=== PATIENT | female | born 1950 | race Hispanic/Latino ===

== ENCOUNTER 2017-07-25 14:17 | Inpatient (IN) | payer MEDICARE ==
[~2017-07-25] VITALS: Ht 151.1 cm; Wt 70.5 kg
[2017-07-25 16:40] VITALS: BP 125/71
[2017-07-25 17:05] LABS: BASOPHILS % (AUTO) 0.6 % (0.0-5.0); EOSINOPHILS % (AUTO) 1.9 % (0.0-8.0); LYMPHOCYTES % (AUTO) 35.5 % (21.0-51.0); MEAN CORPUSCULAR HEMOGLOBIN 30.6 pg (27.0-33.0); MEAN CORPUSCULAR HGB CONC 33.9 g/dL (32.0-36.0); MEAN CORPUSCULAR VOLUME 90.3 fL (79-99); MONOCYTES % (AUTO) 8.7 % (3.0-13.0); NEUTROPHILS % (AUTO) 53.3 % (40.0-77.0); PLATELET COUNT (AUTO) 196 K/uL (130-400); RED BLOOD CELL COUNT(AUTO) 3.77 MIL/uL (4.00-5.50); RED CELL DISTRIBUTION WIDTH 12.4 % (11.0-15.5); WHITE BLOOD COUNT (AUTO) 6.5 K/uL (4.8-10.8)
[2017-07-25 17:06] LABS: APPEARANCE,URINE Clear (CLEAR); BILIRUBIN,URINE Negative (NEGATIVE); COLOR,URINE Yellow (YELLOW); GLUCOSE, URINE (UA) Negative (NEGATIVE); KETONES,URINE Negative (NEGATIVE); LEUKOCYTE ESTERASE ,URINE Negative (NEGATIVE); NITRATE,URINE Negative (NEGATIVE); OCCULT BLOOD,URINE Moderate (NEGATIVE); PROTEIN,URINE Negative (NEGATIVE)
[2017-07-25 17:24] LABS: CREATININE 1.1 mg/dL (0.5-1.5); POTASSIUM 4.2 mmol/L (3.5-5.1)
[2017-07-25] MEDS ORDERED: ATOR20TA65 PO (17:34)
[2017-07-25] MEDS ORDERED: MELO-106 PO (17:34)
[2017-07-25] MEDS ORDERED: FLUT15.88 NS (17:34)
[2017-07-25] MEDS ORDERED: LISI1TAB9 PO (17:34)
[2017-07-25] MEDS ORDERED: FOLI1TAB15 PO (17:34)
[2017-07-25] MEDS ORDERED: AEC81 PO (17:34)
[2017-07-25] MEDS ORDERED: ERGO500014 PO (17:34)
[2017-07-25] MEDS ORDERED: ACET-2743 PO (17:34)
[2017-07-25] MEDS: CEFAZOLIN SODIUM 1 GM VIAL IVP SCH (18:15)
[2017-07-25] MEDS ORDERED: WATER FOR INJECTION,STERILE 20 ML VIAL IJ SCH (18:15)
[2017-07-28] VITALS (31 sets, daily range): BP systolic 94–140; BP diastolic 53–81
[2017-07-28] MEDS ORDERED: BUPIVACAINE/EPI/PF 0.25% 30ML VIAL IJ ONE (06:47)
[2017-07-28] MEDS ORDERED: CEFAZOLIN SODIUM 1 GM VIAL ONE (06:47)
[2017-07-28] MEDS ORDERED: TRANEXAMIC ACID 1000MG/10ML IV ONE (06:47)
[2017-07-28] MEDS ORDERED: LACTATED RINGERS 1000ML 1,000 ML IV ONE (08:03)
[2017-07-28] MEDS ORDERED: ACETAMINOPHEN EXTRA STRENGTH 500 MG TABLET ONE (08:26)
[2017-07-28] MEDS ORDERED: KETOROLAC TROMETHAMINE 15MG/ML ONE (08:26)
[2017-07-28] MEDS ORDERED: OXYCODONE HCL 10 MG TAB.SR.12H PO ONE (08:27)
[2017-07-28] MEDS ORDERED: CELECOXIB 200 MG CAP ONE (08:27)
[2017-07-28] MEDS ORDERED: METOCLOPRAMIDE 10 MG/2 ML VIAL ONE (08:27)
[2017-07-28] MEDS ORDERED: GLYCOPYRROLATE 0.2 MG/ML 5 ML VIAL ONE (09:25)
[2017-07-28] MEDS ORDERED: PROPOFOL 10 MG/ML 20ML VIAL IV ONE (09:25)
[2017-07-28] MEDS ORDERED: NEOSTIGMINE METHYLSULFATE 1MG/ML IV ONE (09:25)
[2017-07-28] MEDS ORDERED: SUCCINYLCHOLINE 200MG/10ML SYR ONE (09:25)
[2017-07-28] MEDS ORDERED: DEXAMETHASONE SOD PHOSPHATE 10MG/ML 1ML VIAL ONE (09:25)
[2017-07-28] MEDS ORDERED: MIDAZOLAM HCL 1 MG/ML 2ML VIAL ONE (09:25)
[2017-07-28] MEDS ORDERED: LIDOCAINE PF 2% 5ML ABBOJECT ONE (09:25)
[2017-07-28] MEDS ORDERED: ONDANSETRON HCL 4 MG/2 ML VIAL ONE (09:25)
[2017-07-28] MEDS ORDERED: FENTANYL CITRATE PF 50 MCG/1 ML 2ML VIAL ONE ×2 (09:26→10:58)
[2017-07-28] MEDS ORDERED: ROPIVACAINE 0.5% 5MG/ML 30ML IJ ONE (09:31)
[2017-07-28] MEDS ORDERED: VECURONIUM BROMIDE 10 MG ML IV ONE (09:31)
[2017-07-28] MEDS: CEFAZOLIN SODIUM 1 GM VIAL IVP SCH ×3 (10:20→17:06)
[2017-07-28] MEDS ORDERED: PROMETHAZINE HCL 25 MG/ML 1ML AMPULE IM PRN (12:15)
[2017-07-28] MEDS ORDERED: POTASSIUM CHLORIDE 20 MEQ ERTAB PO PRN (12:15)
[2017-07-28] MEDS ORDERED: CALCIUM CARBONATE 500 MG TABLET PO PRN (12:15)
[2017-07-28] MEDS ORDERED: POTASSIUM CHLORIDE 10% ELIXIR 20 MEQ/15 ML UDCUP PO PRN (12:15)
[2017-07-28] MEDS ORDERED: POTASSIUM CHLORIDE 20MEQ/100ML 100 ML IV PRN (12:15)
[2017-07-28] MEDS ORDERED: TEMAZEPAM 15 MG CAPSULE PO PRN (12:15)
[2017-07-28] MEDS ORDERED: KETOROLAC TROMETHAMINE 15MG/ML IV PRN (12:15)
[2017-07-28] MEDS ORDERED: OXYCODONE HCL 5 MG TAB PO PRN ×2 (12:15)
[2017-07-28] MEDS ORDERED: FERROUS FUMARATE 324 MG TABLET PO PRN (12:15)
[2017-07-28] MEDS ORDERED: DIPHENHYDRAMINE HCL 25 MG CAPSULE PO PRN (12:15)
[2017-07-28] MEDS: ACETAMINOPHEN 325 MG TAB PO SCH ×2 (12:15→22:34)
[2017-07-28] MEDS ORDERED: LIDOCAINE HCL-MPF 1% 2ML VIAL IVP PRN (12:15)
[2017-07-28] MEDS ORDERED: DiphenhydrAMINE HCL 50 MG/ML VIAL IVP PRN (12:15)
[2017-07-28] MEDS ORDERED: MEPERIDINE-PF 25 MG/ML SYG ONE ×2 (13:45→14:02)
[2017-07-28] MEDS ORDERED: KETOROLAC TROMETHAMINE 30MG/ML ONE (13:46)
[2017-07-28] MEDS ORDERED: SODIUM CHLORIDE 0.9% 1000ML 1,000 ML IV ONE (14:47)
[2017-07-28] MEDS ORDERED: FLUTICASONE PROPIONATE 50MCG/SPRAY 16 GM BOTTLE NS PRN (15:30)
[2017-07-28] MEDS: SODIUM CHLORIDE 0.9% 1000ML 1,000 ML IV SCH ×2 (15:33→22:34)
[2017-07-28] MEDS: WATER FOR INJECTION,STERILE 20 ML VIAL IJ SCH (17:06)
[2017-07-28] MEDS ORDERED: CEFAZOLIN 2GM / 50 ML 50 ML IV SCH (17:15)
[2017-07-28] MEDS: PREGABALIN 25 MG CAP PO SCH (22:33)
[2017-07-28] MEDS: ATORVASTATIN CALCIUM 20 MG TABLET PO SCH (22:33)
[2017-07-28] MEDS: FAMOTIDINE 20MG TAB 20 MG TAB PO SCH (22:33)
[2017-07-28] MEDS: ASPIRIN 325 MG TABLET PO SCH (22:33)
[2017-07-28] MEDS: CELECOXIB 200 MG CAP PO SCH (22:33)
[2017-07-29] VITALS: BP 95/57
[2017-07-29] MEDS: ACETAMINOPHEN 325 MG TAB PO SCH ×4 (00:07→18:09)
[2017-07-29] MEDS: WATER FOR INJECTION,STERILE 20 ML VIAL IJ SCH (00:52)
[2017-07-29] MEDS: CEFAZOLIN SODIUM 1 GM VIAL IVP SCH ×2 (00:52→11:51)
[2017-07-29 04:00] VITALS: BP 112/65
[2017-07-29 04:44] LABS: HEMATOCRIT 28.2 % (36-48); MEAN CORPUSCULAR HEMOGLOBIN 32.4 pg (27.0-33.0); MEAN CORPUSCULAR HGB CONC 35.5 g/dL (32.0-36.0); MEAN CORPUSCULAR VOLUME 91.2 fL (79-99); PLATELET COUNT (AUTO) 140 K/uL (130-400); RED BLOOD CELL COUNT(AUTO) 3.09 MIL/uL (4.00-5.50); RED CELL DISTRIBUTION WIDTH 12.3 % (11.0-15.5); WHITE BLOOD COUNT (AUTO) 9.9 K/uL (4.8-10.8)
[2017-07-29 04:47] LABS: CREATININE 1.4 mg/dL (0.5-1.5); POTASSIUM 4.4 mmol/L (3.5-5.1)
[2017-07-29 07:52] VITALS: BP 93/58
[2017-07-29] MEDS: FAMOTIDINE 20MG TAB 20 MG TAB PO SCH ×2 (08:31→21:14)
[2017-07-29] MEDS: SODIUM CHLORIDE 0.9% 1000ML 1,000 ML IV SCH (08:31)
[2017-07-29] MEDS: ASPIRIN 325 MG TABLET PO SCH ×2 (08:31→21:14)
[2017-07-29] MEDS: POLYETHYLENE GLYCOL 3350 17 GM POWD.PACK PO SCH (08:31)
[2017-07-29] MEDS: TRAMADOL HCL 50 MG TABLET PO PRN (08:31)
[2017-07-29] MEDS: CELECOXIB 200 MG CAP PO SCH ×2 (08:32→21:14)
[2017-07-29] MEDS: PREGABALIN 25 MG CAP PO SCH ×2 (08:32→21:14)
[2017-07-29] MEDS: HYDROCHLOROTHIAZIDE 25 MG TABLET PO SCH (08:33)
[2017-07-29 11:39] VITALS: BP 93/57
[2017-07-29] MEDS: LISINOPRIL 10 MG TABLET PO SCH (11:46)
[2017-07-29] MEDS: PSYLLIUM SEED 1 EACH PACKET PO SCH (11:48)
[2017-07-29 16:47] VITALS: BP 101/63
[2017-07-29 20:00] VITALS: BP 100/58
[2017-07-29] MEDS: ATORVASTATIN CALCIUM 20 MG TABLET PO SCH (21:14)
[2017-07-30] VITALS: BP 98/57
[2017-07-30] MEDS: ACETAMINOPHEN 325 MG TAB PO SCH ×4 (00:19→17:58)
[2017-07-30 04:00] VITALS: BP 115/63
[2017-07-30 04:35] LABS: MEAN CORPUSCULAR HEMOGLOBIN 31.1 pg (27.0-33.0); MEAN CORPUSCULAR VOLUME 91.5 fL (79-99); PLATELET COUNT (AUTO) 121 K/uL (130-400); RED BLOOD CELL COUNT(AUTO) 2.96 MIL/uL (4.00-5.50); RED CELL DISTRIBUTION WIDTH 12.4 % (11.0-15.5); WHITE BLOOD COUNT (AUTO) 9.2 K/uL (4.8-10.8)
[2017-07-30 04:52] LABS: CREATININE 1.3 mg/dL (0.5-1.5)
[2017-07-30 07:44] VITALS: BP 126/66
[2017-07-30] MEDS: HYDROCHLOROTHIAZIDE 25 MG TABLET PO SCH (08:41)
[2017-07-30] MEDS: CELECOXIB 200 MG CAP PO SCH (08:42)
[2017-07-30] MEDS: ASPIRIN 325 MG TABLET PO SCH (08:43)
[2017-07-30] MEDS: FAMOTIDINE 20MG TAB 20 MG TAB PO SCH (08:43)
[2017-07-30] MEDS: POLYETHYLENE GLYCOL 3350 17 GM POWD.PACK PO SCH (08:43)
[2017-07-30] MEDS: PREGABALIN 25 MG CAP PO SCH (08:43)
[2017-07-30] MEDS: LISINOPRIL 10 MG TABLET PO SCH (10:35)
[2017-07-30] MEDS: TRAMADOL HCL 50 MG TABLET PO PRN (10:36)
[2017-07-30 11:13] VITALS: BP 115/56
[2017-07-30] MEDS ORDERED: BISACODYL 5 MG TABLET.DR PO PRN (12:15)
[2017-07-30] MEDS: PSYLLIUM SEED 1 EACH PACKET PO SCH (13:12)
[2017-07-30] MEDS ORDERED: ASPI-1012 PO (14:06)
[2017-07-30] MEDS ORDERED: HYDR-309 PO (14:06)
[2017-07-30 16:27] VITALS: BP 123/70
[2017-07-31] MEDS ORDERED: BISACODYL 10 MG SUPP.RECT RC PRN (12:15)
== END 2017-07-30 20:30 | disposition home health service (06) | DRG 470 ==
LOC: DAHIP 07-28 06:55 → 4AH 07-28 13:35
PROVIDERS: ADMIT Orthopaedic Surgery; ATTEND Orthopaedic Surgery
PROC: 0SRC0J9 Replacement of Right Knee Joint with Synthetic Substitute, Cemented, Open Approach (ICD-10-PCS; principal; 2017-07-28 10:08)
DX: M17.11 Unilateral primary osteoarthritis, right knee (principal); G89.29 Other chronic pain; I10 Essential (primary) hypertension; K21.9 Gastro-esophageal reflux disease without esophagitis; M21.00 Valgus deformity, not elsewhere classified, unspecified site; Z90.710 Acquired absence of both cervix and uterus; Z90.49 Acquired absence of other specified parts of digestive tract
CPT/HCPCS: 36415; 80048; 81003; 85025; 85027; 88305; 88311; 93005; 96374; 96375; A4218; C1713; J0330; J0690; J1100; J1885; J2001; J2175; J2250; J2405; J2704; J2710; J2765; J2795; J3010; J3490; J7030; J7120

== ENCOUNTER 2022-03-18 07:58 | Observation (INO) | payer MEDICARE ==
[2022-03-15 10:11] LABS: BASOPHILS % (AUTO) 0.4 % (0.0-5.0); EOSINOPHILS % (AUTO) 2.6 % (0.0-8.0); HEMATOCRIT 37.2 % (36-48); LYMPHOCYTES % (AUTO) 38.2 % (21.0-51.0); MEAN CORPUSCULAR HEMOGLOBIN 30.1 pg (27.0-33.0); MEAN CORPUSCULAR HGB CONC 33.3 g/dL (32.0-36.0); MEAN CORPUSCULAR VOLUME 90.3 fL (79-99); MONOCYTES % (AUTO) 7.6 % (3.0-13.0); PLATELET COUNT (AUTO) 199 K/uL (130-400); RED BLOOD CELL COUNT(AUTO) 4.12 MIL/uL (4.00-5.50); RED CELL DISTRIBUTION WIDTH 12.5 % (11.0-15.5); WHITE BLOOD COUNT (AUTO) 5.4 K/uL (4.8-10.8)
[2022-03-15 10:12] LABS: APPEARANCE,URINE CLEAR (CLEAR); BILIRUBIN,URINE NEGATIVE (NEGATIVE); COLOR,URINE YELLOW (YELLOW); GLUCOSE, URINE (UA) NEGATIVE (NEGATIVE); KETONES,URINE NEGATIVE (NEGATIVE); LEUKOCYTE ESTERASE ,URINE NEGATIVE (NEGATIVE); NITRATE,URINE NEGATIVE (NEGATIVE); OCCULT BLOOD,URINE MODERATE (NEGATIVE); PH,URINE 6.5 (5.0-8.0); PROTEIN,URINE NEGATIVE (NEGATIVE); UROBILINOGEN,URINE 0.2 mg/dL (0.2-1.0)
[2022-03-15 10:24] LABS: ALBUMIN 3.7 g/dL (3.5-5.0); CARBON DIOXIDE 30 mmol/L (21-32); CHLORIDE 105 mmol/L (101-111); CREATININE 1.1 mg/dL (0.5-1.5); GLOMERULAR FILTR. RATE CALC 52 mL/min (>60); GLUCOSE,RANDOM 91 mg/dL (70-105); SODIUM SERUM 142 mmol/L (136-145); UREA NITROGEN, BLOOD 15 mg/dL (7-18)
[2022-03-15 10:36] LABS: CRP QUANTITATIVE < 2.00 mg/L (0.00-9.0)
[2022-03-15 10:49] LABS: BACTERIA,URINE Rare /HPF (None Seen); SQUAMOUS EPITHELIAL CELL,UR 0-2 /HPF (0-2); WBC,URINE None Seen /HPF (0-1)
[2022-03-15 11:03] VITALS: BP 170/76
[2022-03-18] VITALS (25 sets, daily range): BP systolic 108–149; BP diastolic 62–85
[~2022-03-18] VITALS: Ht 157.5 cm; Wt 69.0 kg
[~2022-03-18 07:58] MED LIST: AEC81 PO; ALEN70TA80 PO; ERGO500014 PO; FOLI1TAB15 PO; LISI1TAB49 PO
[2022-03-18] MEDS ORDERED: LACTATED RINGERS 1000ML 1,000 ML IV ONE ×2 (08:56→15:18)
[2022-03-18] MEDS: CEFAZOLIN SODIUM 1 GM VIAL IVP SCH ×2 (09:40→15:31)
[2022-03-18] MEDS ORDERED: FENTANYL CITRATE PF 50 MCG/1 ML 2ML VIAL ONE (12:19)
[2022-03-18] MEDS ORDERED: PROPOFOL 10 MG/ML 20ML VIAL IV ONE ×2 (12:19→15:28)
[2022-03-18] MEDS ORDERED: GLYCOPYRROLATE 1 MG/5 ML SYRINGE ONE ×2 (12:19→15:28)
[2022-03-18] MEDS ORDERED: DEXAMETHASONE SOD PHOSPHATE 10MG/ML 1ML VIAL ONE ×2 (12:19→15:28)
[2022-03-18] MEDS ORDERED: ONDANSETRON 4MG INJ ONE ×2 (12:19→15:28)
[2022-03-18] MEDS ORDERED: SUCCINYLCHOLINE CHLORIDE 20 MG/ML 10 ML VIAL ONE (12:19)
[2022-03-18] MEDS ORDERED: MIDAZOLAM HCL 1 MG/ML 2ML VIAL ONE ×2 (12:20→15:29)
[2022-03-18] MEDS ORDERED: ROPIVACAINE 0.5% 5MG/ML 30ML IJ ONE ×2 (12:20→15:19)
[2022-03-18] MEDS ORDERED: NEOSTIGMINE 5MG/5ML SYR IV ONE ×3 (12:20→17:38)
[2022-03-18] MEDS ORDERED: ROCURONIUM 10MG/1ML SYR 10 MG/ML ML ONE ×2 (12:20→15:29)
[2022-03-18] MEDS ORDERED: KETOROLAC 30MG VIAL (30MG/ML) ONE (15:19)
[2022-03-18] MEDS ORDERED: SUCCINYLCHOLINE 200MG/10ML SYR ONE (15:28)
[2022-03-18] MEDS ORDERED: LIDOCAINE PF 100MG/5ML (2%) SYRINGE 5ML ONE ×2 (15:28→15:29)
[2022-03-18] MEDS ORDERED: TRANEXAMIC ACID 1000MG/10ML ONE (15:42)
[2022-03-18] MEDS ORDERED: MEPERIDINE-PF 25 MG/ML SYG ONE (15:59)
[2022-03-18] MEDS ORDERED: FERROUS FUMARATE 324 MG TABLET PO PRN (18:00)
[2022-03-18] MEDS ORDERED: LIDOCAINE HCL-MPF 1% 2ML VIAL IV PRN (18:00)
[2022-03-18] MEDS ORDERED: POTASSIUM CHLORIDE 10% ELIXIR 20 MEQ/15 ML UDCUP PO PRN (18:00)
[2022-03-18] MEDS ORDERED: HYDROCODONE/ACETAMINOPHEN 5/325 MG TAB PO PRN (18:00)
[2022-03-18] MEDS ORDERED: ONDANSETRON 4MG INJ IVP PRN (18:00)
[2022-03-18] MEDS ORDERED: CALCIUM CARB 500MG PO PRN (18:00)
[2022-03-18] MEDS ORDERED: CYCLOBENZAPRINE HCL 10 MG TABLET PO PRN (18:00)
[2022-03-18] MEDS ORDERED: KCL 20 MEQ ERTAB PO PRN (18:00)
[2022-03-18] MEDS ORDERED: POTASSIUM CHLORIDE 20MEQ/100ML 100 ML IV PRN (18:00)
[2022-03-18] MEDS ORDERED: PHARMACY COMMUNICATION MISC SCH (18:30)
[2022-03-18] MEDS: 0.9%NACL 1000ML 1,000 ML IV SCH (21:11)
[2022-03-18] MEDS: GABAPENTIN 100 MG CAPSULE PO SCH (21:12)
[2022-03-18] MEDS: DOCUSATE SODIUM 100 MG CAP PO SCH (21:12)
[2022-03-18] MEDS: HYDROCODONE/ACETAMINOPHEN 5/325 MG TAB PO PRN (21:12)
[2022-03-19] MEDS: CEFAZOLIN SODIUM 1 GM VIAL IVP SCH ×2 (00:25→06:12)
[2022-03-19] MEDS: HYDROCODONE/ACETAMINOPHEN 5/325 MG TAB PO PRN ×2 (04:33→08:35)
[2022-03-19 04:36] VITALS: BP 102/60
[2022-03-19 04:40] LABS: HEMATOCRIT 31.3 % (36-48); MEAN CORPUSCULAR HEMOGLOBIN 30.9 pg (27.0-33.0); MEAN CORPUSCULAR HGB CONC 34.2 g/dL (32.0-36.0); MEAN CORPUSCULAR VOLUME 90.5 fL (79-99); RED BLOOD CELL COUNT(AUTO) 3.46 MIL/uL (4.00-5.50); RED CELL DISTRIBUTION WIDTH 12.2 % (11.0-15.5); WHITE BLOOD COUNT (AUTO) 7.9 K/uL (4.8-10.8)
[2022-03-19 04:50] LABS: CREATININE 1.3 mg/dL (0.5-1.5); POTASSIUM 3.9 mmol/L (3.5-5.1)
[2022-03-19] MEDS: 0.9%NACL 1000ML 1,000 ML IV SCH ×2 (06:14→14:00)
[2022-03-19 07:30] VITALS: BP 102/63
[2022-03-19] MEDS: GABAPENTIN 100 MG CAPSULE PO SCH (08:32)
[2022-03-19] MEDS: POLYETHYLENE GLYCOL 3350 17 GM POWD.PACK PO SCH (08:32)
[2022-03-19] MEDS: FOLIC ACID 1 MG TABLET PO SCH (08:33)
[2022-03-19] MEDS: ASPIRIN 325MG TAB PO SCH (08:33)
[2022-03-19] MEDS: DOCUSATE SODIUM 100 MG CAP PO SCH ×2 (08:34→20:40)
[2022-03-19] MEDS: HYDROCHLOROTHIAZIDE 25 MG TABLET PO SCH (09:00)
[2022-03-19] MEDS: LISINOPRIL 10 MG TABLET PO SCH (09:00)
[2022-03-19 11:00] VITALS: BP 91/56
[2022-03-19 16:00] VITALS: BP 89/48
[2022-03-19 18:00] VITALS: BP 95/51
[2022-03-19] MEDS ORDERED: 0.9%NACL 1000ML 1,000 ML IV SCH (20:00)
[2022-03-19] MEDS: TRAMADOL HCL 50 MG TABLET PO PRN (20:44)
[2022-03-19 20:57] VITALS: BP 107/52
[2022-03-19] MEDS: KETOROLAC 15MG/ML VIAL (15MG/ML) IV PRN (23:40)
[2022-03-20 00:11] VITALS: BP 107/63
[2022-03-20 04:50] VITALS: BP 103/55
[2022-03-20] MEDS: KETOROLAC 15MG/ML VIAL (15MG/ML) IV PRN (06:20)
[2022-03-20 07:30] VITALS: BP 108/66
[2022-03-20] MEDS: TRAMADOL HCL 50 MG TABLET PO PRN (08:12)
[2022-03-20] MEDS: ASPIRIN 325MG TAB PO SCH (10:27)
[2022-03-20] MEDS: FOLIC ACID 1 MG TABLET PO SCH (10:27)
[2022-03-20] MEDS: DOCUSATE SODIUM 100 MG CAP PO SCH (10:27)
[2022-03-20] MEDS: LISINOPRIL 10 MG TABLET PO SCH (10:27)
[2022-03-20] MEDS: HYDROCHLOROTHIAZIDE 25 MG TABLET PO SCH (10:28)
[2022-03-20] MEDS: POLYETHYLENE GLYCOL 3350 17 GM POWD.PACK PO SCH (10:29)
[2022-03-20 11:18] VITALS: BP 95/56
[2022-03-20] MEDS ORDERED: DOCU-116 PO (17:12)
[2022-03-20] MEDS ORDERED: HYDR-4060 PO (17:12)
[2022-03-20] MEDS ORDERED: ASPI-1026 PO (17:12)
[2022-03-21] MEDS ORDERED: BISACODYL 10 MG SUPP.RECT RC PRN (18:00)
== END 2022-03-20 18:07 | disposition home health service (06) ==
LOC: DAH 07:58 → INTOOBSV 07:59 → DAHIP 07:59 → 4DH 19:05
PROVIDERS: ADMIT Student in an Organized Health Care Education/Training Program; ATTEND Student in an Organized Health Care Education/Training Program
DX: M17.12 Unilateral primary osteoarthritis, left knee (principal); Z20.822 Contact with and (suspected) exposure to COVID-19; I10 Essential (primary) hypertension; Z79.899 Other long term (current) drug therapy
CPT/HCPCS: 82040; 80048 ×2; 85025; 85730; 87088; 84134; 86140; 87426; 81001; 36415 ×2; 87641; 27447; 73560; 97039 ×4; 96374; 96376 ×2; 96375; 85027; 97161; 97116 ×3; 97530 ×3; G0378 ×30; J7120 ×3; A4215 ×2; A4600; J0690 ×4; J3490 ×2; J0330 ×2; J1100 ×2; J2710 ×2; J2001 ×2; J2250; J2704; J2405 ×3; J1885 ×3; J2175; J2795 ×2; G0168; A4649 ×3; C1776; A6255; A5120; A4223; A4222; A4221; A4663; J3010